=== PATIENT | female | born 1945 | race Caucasian/White ===

== ENCOUNTER → 2019-12-03 | Outpatient (CLI) | payer MEDICARE ==
--- NOTE | 2019-12-05 09:19 | Diagnostic Imaging Report ---
PROCEDURE: Ultrasound-guided thyroid FNA Procedural Personnel Attending physician(s): Antonietta Rubin MD Fellow physician(s): None Resident physician(s): None Advanced practice provider(s): None Pre-procedure diagnosis: Thyroid nodules Post-procedure diagnosis: Same Indication: Histopathologic diagnosis Previous biopsy of same target (QCDR): No Additional clinical history: Bilateral suspicious thyroid nodules Complications: No immediate complications. IMPRESSION: Ultrasound-guided FNA biopsy of right and left thyroid nodules. Plan: Specimen(s) sent for evaluation. PROCEDURE SUMMARY: - Percutaneous US-guided fine needle aspiration biopsy - Additional procedure(s): None PROCEDURE DETAILS: Pre-procedure Reference imaging for biopsy target: Outside thyroid ultrasound without report Consent: Informed consent for the procedure including risks, benefits and alternatives was obtained and time-out was performed prior to the procedure. Preparation: The site was prepared and draped using maximal sterile barrier technique including cutaneous antisepsis. Anesthesia/sedation Level of anesthesia/sedation: No sedation Anesthesia/sedation administered by: Independent trained observer under attending supervision with continuous monitoring of the patient?s level of consciousness and physiologic status Total intra-service sedation time (minutes): NA Imaging prior to biopsy The patient was positioned supine. Initial ultrasound was performed. Biopsy target: - Maximal diameter (cm): 3 - Location: Right thyroid, left thyroid Other findings: None Biopsy Local anesthesia was administered. Under US guidance, the biopsy needle was advanced to the target and biopsy was performed. Coaxial needle: None Fine needle aspiration device: Chiba Fine needle size: 22g Number of FNA specimens: 3 passes from right thyroid nodule, 3 passes from left thyroid nodule On-site biopsy touch preparation: Yes Additional sampling recommendations: None Preliminary assessment of sample adequacy: Not applicable Needle removal The biopsy needle was removed and a sterile dressing was applied. Tract embolization: None Imaging following biopsy Immediate post-biopsy ultrasound was performed. Post-biopsy imaging findings: No complications Additional Details Additional description of procedure: None Equipment details: None Specimens removed: Biopsy samples as detailed above Estimated blood loss (mL): Less than 10 Standardized report: [id number] Attestation Signer name: Antonietta Rubin MD I attest that I was present for the entire procedure. I reviewed the stored images and agree with the report as written. Signed by: Antonietta Rubin MD on 12/05/2019 9:16 AM
== END ==
LOC: US 09:47
PROVIDERS: ATTEND Otolaryngology
DX: E04.2 Nontoxic multinodular goiter (principal)
CPT/HCPCS: 10005; 10006; 88112